=== PATIENT | female | born 1970 | race American Indian/Alaskan Native ===

== ENCOUNTER 2016-08-16 04:48 | Emergency (ER) | payer MEDICAID ==
[2016-08-16 07:05] LABS: Creatine Kinase 47 units/L (30-135); Creatine Kinase MB 3.5 ng/mL (0.0-4.0)
[2016-08-16 11:17] LABS: Alanine Aminotransferase 6 units/L (7-56); Albumin 4.2 g/dL (3.9-5); Albumin/Globulin Ratio 1.1 %; Alkaline Phosphatase 77 units/L (35-129); Anion Gap 25 mmol/L; BUN/Creatinine Ratio 16.66; Bilirubin,Total 0.7 mg/dL (0.1-1.2); Blood Urea Nitrogen 10 mg/dL (7-17); Calcium 9.2 mg/dL (8.4-10.2); Carbon Dioxide 21 mmol/L (22-30); Chloride 87.2 mmol/L (98-107); Glucose 151 mg/dL (65-100); Lipase 11 units/L (13-60); Potassium 3.2 mmol/L (3.6-5.0); Sodium 130 mmol/L (137-145); Total Protein 8.2 g/dL (6.3-8.2)
[2016-08-16 11:31] LABS: Basophils % (Auto) 0.7 % (0.0-1.8); Eosinophils % (Auto) 0.1 % (0.0-4.3); Mean Corpuscular HGB Conc 28 % (30-34); Platelet Count 264 K/mm3 (140-440); Red Blood Count 6.48 M/mm3 (3.65-5.03); White Blood Count 8.9 K/mm3 (4.5-11.0)
[2016-08-16 11:33] LABS: Hematocrit 37.6 % (30.3-42.9); Hemoglobin 10.6 gm/dl (10.1-14.3); Mean Corpuscular Hemoglobin 16 pg (28-32); Mean Corpuscular Volume 58 fl (79-97)
[2016-08-16 11:37] LABS: Bilirubin,Urine NEG (Negative); Blood,Urine NEG (Negative); Ketones,Urine TR mg/dL (Negative); Leukocyte Esterase,Urine NEG (Negative); Mucus,Urine 3+ /HPF; Nitrite,Urine NEG (Negative)
[2016-08-16] MEDS ORDERED: REGLAN IV ONE (12:36)
[2016-08-16] MEDS ORDERED: NACL 0.9% 1000 ML IV ONE (12:36)
[2016-08-16] MEDS ORDERED: TORADOL IV ONE (12:36)
--- NOTE | 2016-08-16 13:23 | Ultrasound Report ---
RIGHT UPPER QUADRANT ULTRASOUND: HISTORY: Right upper quadrant pain. Technique: Transabdominal ultrasound imaging with Doppler interrogation. FINDINGS: There are a few small shadowing gallstones in the fundus of the gallbladder. No wall thickening, abnormal distention or surrounding fluid. The common duct measures 5 mm. Images of the liver parenchyma, pancreas, right kidney and aorta are within normal limits. No perihepatic ascites. IMPRESSION: Cholelithiasis. No findings of acute cholecystitis.
--- NOTE | 2016-08-16 13:57 | Emergency Department Report ---
HPI - General Chief Complaint: Abdominal Pain Time Seen by Provider: 08/16/16 12:26 - HPI HPI: Chief complaint: Right upper quadrant pain, nausea vomiting, headache dizziness on standing HPI: Patient is a 46-year-old female states she was diagnosed in March herself or with gallstones. Patient never followed up with the referral she was given an states on after eating some tater tots she began having pain to her right upper quadrant along with nausea vomiting and diarrhea. The diarrhea has improved but she continues to have nausea and vomiting. Patient states she is dizzy on standing and has a throbbing frontal headache when she stands. Patient also complains of diffuse aching pains. Patient has a history of hyperthyroidism and is on methimazole and propranolol. Patient also takes Lasix and lisinopril and states she has a history of congestive heart failure. Patient states she's not been able to keep her medications down. Mode of arrival: EMS Source: Patient Began: Duration: 4 days Context: See above Quality: Sharp Severity: 10 out of 10 Improved with: Nothing Worsened with: Eating Associated signs and symptoms: Questionable fever patient did not take her temperature. ED Past Medical Hx - Past Medical History Previous Medical History?: Yes Hx Hypertension: Yes Hx Congestive Heart Failure: Yes Additional medical history: Hyperthyroid, gallstones, bronchitis - Medications Home Medications: Home Medications Medication Instructions Recorded Confirmed Last Taken Type HYDROcodone/APAP 5-325 [[place] 1 each PO Q6HR PRN #14 tablet 08/16/16 Unknown Rx 5/325] Lisinopril [Zestril TAB] 5 mg PO QDAY #30 tablet 08/16/16 Unknown Rx Methimazole 10 mg PO DAILY #30 tablet 08/16/16 Unknown Rx Metoclopramide [Reglan] 10 mg PO Q6H PRN #20 tab 08/16/16 Unknown Rx Propranolol [Inderal] 20 mg PO BID #60 tablet 08/16/16 Unknown Rx ED Review of Systems ROS: Stated complaint: NAUSEA, VOMITING Other details as noted in HPI ROS Constitutional: No fever ENT: No uri symptoms Cardiovascular: No chest pain Respiratory: No sob or cough GI: See HPI : No dysuria frequency or urgency, Skin: No rash Neuro: No focal weakness or numbness Psych: No depression Luis/lymph: No edema Physical Exam - Physical Exam Vital Signs: Vital Signs 08/16/16 08/16/16 08/16/16 06:00 11:10 11:12 Temperature 97.6 F Pulse Rate 130 H 119 H Respiratory 18 18 Rate Blood Pressure 188/131 O2 Sat by Pulse 100 95 Oximetry 08/16/16 08/16/16 08/16/16 11:13 11:14 11:16 Temperature Pulse Rate 120 H 126 H 116 H Respiratory 18 14 19 Rate Blood Pressure 111/68 111/68 111/68 O2 Sat by Pulse 97 98 100 Oximetry 08/16/16 08/16/16 08/16/16 11:18 11:20 11:22 Temperature Pulse Rate 111 H 114 H 110 H Respiratory 18 16 17 Rate Blood Pressure 111/68 111/68 111/68 O2 Sat by Pulse 100 99 100 Oximetry 08/16/16 08/16/16 08/16/16 11:24 11:26 11:28 Temperature Pulse Rate 124 H 112 H 127 H Respiratory 16 17 15 Rate Blood Pressure 111/68 111/68 111/68 O2 Sat by Pulse 100 100 100 Oximetry 08/16/16 11:30 Temperature Pulse Rate 121 H Respiratory 20 Rate Blood Pressure 111/68 O2 Sat by Pulse 100 Oximetry Physical Exam: GENERAL: The patient is an obese -[place] female no acute distress. HEENT: Normocephalic. Atraumatic. Extraocular motions are intact. Patient has moist mucous membranes. NECK: Supple. No meningitic signs are noted. There is no adenopathy noted. CHEST/LUNGS: Clear to auscultation. There is no respiratory distress noted. HEART/CARDIOVASCULAR: Regular. There is no tachycardia. There is no gallop rub or murmur. ABDOMEN: Abdomen is soft, right upper quadrant tenderness without rebound or guarding. Patient has normal bowel sounds. There is no abdominal distention. SKIN: There is no rash. There is no edema. There is no diaphoresis. NEURO: The patient is awake, alert, and oriented. The patient is cooperative. The patient has no focal neurologic deficits. The patient has normal speech. MUSCULOSKELETAL: There is no tenderness or deformity. There is no limitation range of motion. There is no evidence of acute injury. ED Course Vital Signs 08/16/16 08/16/16 08/16/16 06:00 11:10 11:12 Temperature 97.6 F Pulse Rate 130 H 119 H Respiratory 18 18 Rate Blood Pressure 188/131 O2 Sat by Pulse 100 95 Oximetry 08/16/16 08/16/16 08/16/16 11:13 11:14 11:16 Temperature Pulse Rate 120 H 126 H 116 H Respiratory 18 14 19 Rate Blood Pressure 111/68 111/68 111/68 O2 Sat by Pulse 97 98 100 Oximetry 08/16/16 08/16/16 08/16/16 11:18 11:20 11:22 Temperature Pulse Rate 111 H 114 H 110 H Respiratory 18 16 17 Rate Blood Pressure 111/68 111/68 111/68 O2 Sat by Pulse 100 99 100 Oximetry 08/16/16 08/16/16 08/16/16 11:24 11:26 11:28 Temperature Pulse Rate 124 H 112 H 127 H Respiratory 16 17 15 Rate Blood Pressure 111/68 111/68 111/68 O2 Sat by Pulse 100 100 100 Oximetry 08/16/16 11:30 Temperature Pulse Rate 121 H Respiratory 20 Rate Blood Pressure 111/68 O2 Sat by Pulse 100 Oximetry - Reevaluation(s) Reevaluation #1: 08/16/16 Patient medicated with normal saline, Reglan and Toradol. ED Medical Decision Making - Lab Data Result diagrams: 08/16/16 11:05 08/16/16 06:34 Laboratory Tests 08/16/16 08/16/16 08/16/16 06:34 06:34 11:22 Total Bilirubin 0.7 Total Creatine Kinase 47 CK-MB (CK-2) 3.5 CK-MB (CK-2) Rel Index 7.4 H Troponin T < 0.010 Lipase 11 L Ur Specific [place] 1.023 Urine Protein 100 mg/dl Urine Ketones Tr Ur Leukocyte Esterase Neg Urine WBC (Auto) 8.0 H Urine RBC (Auto) 4.0 U Epithel Cells (Auto) 1.0 Laboratory Tests 08/16/16 13:12 TSH 0.008 L - EKG Data -: EKG Interpreted by Me EKG shows normal: sinus rhythm Rate: tachycardia (120) - EKG Data When compared to previous EKG there are: previous EKG unavailable Interpretation: other (atrial enlargement, LVH, nonspecific ST-T wave changes.) Critical care attestation.: If time is entered above; I have spent that time in minutes in the direct care of this critically ill patient, excluding procedure time. ED Disposition Clinical Impression: Hypokalemia, Hyperthyroidism Cholelithiasis Qualifiers: Cholelithiasis location: gallbladder Cholecystitis presence: without cholecystitis Biliary obstruction: without biliary obstruction Qualified Code(s) : K80.20 - Calculus of gallbladder without cholecystitis without obstruction Disposition: DISCHARGED TO HOME OR SELFCARE Is pt being admited?: No Does the pt Need Aspirin: No Condition: Stable Instructions: Abdominal Pain (ED) Prescriptions: HYDROcodone/APAP 5-325 [[place] 5/325] 1 each PO Q6HR PRN #14 tablet PRN Reason: Pain Lisinopril [Zestril TAB] 5 mg PO QDAY #30 tablet Methimazole 10 mg PO DAILY #30 tablet Metoclopramide [Reglan] 10 mg PO Q6H PRN #20 tab PRN Reason: Nausea And Vomiting Propranolol [Inderal] 20 mg PO BID #60 tablet Referrals: CORDELL MCNAIR MD [Staff Physician] - 3-5 Days [facility] [Provider Group] - 3-5 Days PRIMARY MD BRODIE [Primary Care Provider] - 3-5 Days Time of Disposition: 15:56
[2016-08-16] MEDS ORDERED: K-DUR PO ONE (13:58)
[2016-08-16 14:11] VITALS: BP 114/74
[2016-08-16] MEDS ORDERED: MORPHINE ONE (16:09)
[2016-08-16] MEDS ORDERED: ZOFRAN ONE (16:09)
[2016-08-16] MEDS ORDERED: MORPHINE IV ONE (16:20)
[2016-08-16] MEDS ORDERED: ZOFRAN IV ONE (16:35)
--- NOTE | 2016-08-17 07:38 | XRay Report ---
AP CHEST: HISTORY: Hypertension, CHF AP view of the chest demonstrates a normal mediastinal and cardiac contour with clear lungs and normal bony and soft tissue structures. IMPRESSION: No acute cardiopulmonary process.
== END 2016-08-16 16:38 | disposition home or self-care (01) ==
LOC: ED 04:48
DX: K80.20 Calculus of gallbladder without cholecystitis without obstruction (principal); E87.6 Hypokalemia; E05.90 Thyrotoxicosis, unspecified without thyrotoxic crisis or storm; I10 Essential (primary) hypertension; I50.9 Heart failure, unspecified
CPT/HCPCS: 36415; 71010; 76705; 80053; 81001; 82550; 82553; 83690; 84443; 84484; 85025; 93005; 93010; 96361; 96374; 96375; 99284; J1885; J2270; J2405; J2765; J7030